=== PATIENT | female | born 2000 | race Caucasian/White ===

== ENCOUNTER → 2023-09-18 09:05 | Outpatient (BNVA) | payer OTHER, SELFPAY | PROVIDERS: Family Provider Registered Nurse; PCP Registered Nurse; Visit Provider Nurse Practitioner Women's Health | DX: Z34.90 Encounter for supervision of normal pregnancy, unspecified, unspecified trimester (principal) | CPT/HCPCS: 76801; 80307; 81025; 85025; 86592; 86762; 86803; 86850; 86900; 87086; 87340; 87806 ==

== ENCOUNTER → 2023-10-13 09:30 | Outpatient (BNVA) | payer OTHER, SELFPAY | PROVIDERS: Family Provider Registered Nurse; PCP Registered Nurse; Visit Provider Obstetrics & Gynecology | DX: Z34.02 Encounter for supervision of normal first pregnancy, second trimester (principal) | CPT/HCPCS: 81000; 87491; 87591; 88175 ==

== ENCOUNTER → 2023-11-20 14:18 | Outpatient (BNVA) | payer OTHER, SELFPAY | PROVIDERS: Family Provider Registered Nurse; PCP Registered Nurse; Visit Provider Obstetrics & Gynecology | DX: Z34.90 Encounter for supervision of normal pregnancy, unspecified, unspecified trimester (principal) | CPT/HCPCS: 76805 ==

== ENCOUNTER → 2023-12-12 10:32 | Outpatient (BNVA) | payer OTHER, SELFPAY | PROVIDERS: Family Provider Registered Nurse; PCP Registered Nurse; Visit Provider Nurse Practitioner Women's Health | DX: Z34.02 Encounter for supervision of normal first pregnancy, second trimester (principal) | CPT/HCPCS: 82950 ==

== ENCOUNTER → 2024-01-02 08:30 | Outpatient (BNVA) | payer OTHER, SELFPAY | PROVIDERS: Family Provider Registered Nurse; PCP Registered Nurse; Visit Provider Obstetrics & Gynecology | DX: Z34.02 Encounter for supervision of normal first pregnancy, second trimester (principal) | CPT/HCPCS: 84315; 85025 ==

== ENCOUNTER → 2024-02-11 08:08 | Outpatient (BNVA) | payer OTHER, SELFPAY | PROVIDERS: Family Provider Registered Nurse; PCP Registered Nurse; Visit Provider Nurse Practitioner Women's Health | DX: Z34.03 Encounter for supervision of normal first pregnancy, third trimester (principal) | CPT/HCPCS: 84315; 85025 ==

== ENCOUNTER → 2024-02-23 08:04 | Outpatient (BNVA) | payer OTHER, SELFPAY | PROVIDERS: Family Provider Registered Nurse; PCP Registered Nurse; Visit Provider Obstetrics & Gynecology | DX: Z34.02 Encounter for supervision of normal first pregnancy, second trimester (principal) | CPT/HCPCS: 84315; 87081 ==

== ENCOUNTER 2024-03-23 17:11 | Inpatient (IN) | payer OTHER, SELFPAY ==
[2024-03-23] VITALS (13 sets, daily range): BP systolic 110–143; BP diastolic 75–99; PULSE 67–98; TEMP 36.1; BMI 32.5
[2024-03-23] MEDS: miSOPROStol 100 mcg tablet 25 MCG VAGINAL (18:19)
[2024-03-23 18:45] LABS: Basophils % 0.5 %; Eosinophils # 0.1 10^3/uL (0.0-0.8); Eosinophils % 0.9 %; Hematocrit 34.9 % (36-47); Lymphocytes # 1.5 10^3/uL (0.8-4.8); Lymphocytes % 23.7 %; Mean Corpuscular HGB Conc 33.8 g/dL (30-55); Mean Corpuscular Hemoglobin 31.3 pg (27-33); Mean Corpuscular Volume 92.6 fl (85-98); Mean Platelet Volume 10.8 fL (7.4-10.4); Monocytes # 0.4 10^3/uL (0.2-0.9); Monocytes % 6.1 %; Neutrophils # 4.34 10^3/uL (1.8-7.7); Neutrophils % 68.3 %; Nucleated Red Blood Cells % 0 %; Platelet Count 164 10^3/cmm (157-399); Red Blood Count 3.77 10^6/uL (3.85-5.65); Red Cell Distribution Width 15.8 % (12.1-15.1); White Blood Count 6.36 10^3/uL (3.29-11.43)
[2024-03-23 18:51] LABS: Urine Color Yellow (Yellow)
[2024-03-23 18:52] LABS: Add Urine Microscopic? YES; Bilirubin Urine Neg (Negative); Blood Urine Neg (Negative); Glucose Urine UA Norm (Normal); Ketones Urine Negative (Negative); Leukocyte Esterase Urine Trace (Negative); Nitrate Urine Negative (Negative); Protein Urine Neg (Negative); Urine Appearance Clear (CLEAR); Urobilinogen Urine Norm (Negative); pH Urine 7 (5-7)
[2024-03-23 18:55] LABS: Add Urine Culture? No; Bacteria Urine TRACE /hpf; Transitional Epi Cells Urine 0-4 /hpf
[2024-03-23 18:58] LABS: Urine Creatinine 42 mg/dL (28-217); Urine Protein Random 4 mg/dL
[2024-03-23 18:59] LABS: Alanine Aminotransferase 8 U/L (0-33); Albumin Level 3.5 g/dL (3.5-5.2); Alkaline Phosphatase 198 U/L (35-105); Aspartate Amino Transferase 19 U/L (0-32); Blood Urea Nitrogen 6 mg/dL (6-20); Calcium 8.7 mg/dL (8.5-10.5); Carbon Dioxide 19 mmol/L (22-29); Chloride 104 mmol/L (98-107); Creatinine Clr Calc Pharmacy 158.8692; Glomerular Filtration Rate 152.9 mL/min (90-130); Glucose 108 mg/dL (65-115); Osmolality Calculated 280 mOsm/kg (285-295); Sodium 136 mmol/L (136-145); Total Bilirubin 0.2 mg/dL (0.15-1.2); Total Protein 6.5 g/dL (6.6-8.7)
[2024-03-23 19:03] LABS: Anion Gap 16.6 (5-19); Potassium 3.6 mmol/L (3.5-5.1)
--- NOTE | 2024-03-23 19:16 | W.PM.OPSUD ---
Surgery/Procedure H&P Update DATE OF PROCEDURE: March 23, 2024 DATE H&P PERFORMED: 03/22/24 H&P UPDATE INFORMATION: I have reviewed H&P completed within last 30 days, I have examined patient prior to procedure and No changes to prior documentation
[2024-03-24] VITALS (88 sets, daily range): BP systolic 104–174; BP diastolic 7–107; PULSE 68–123; RESP 15–18; TEMP 36.3–36.7; O2SAT 97–99
[2024-03-24] MEDS: lactated ringers 1,000 ML 999 ML IV ×2 (00:30→05:00)
[2024-03-24] MEDS: fentaNYL 50 mcg/mL INJ 2mL IVP (04:25)
--- NOTE | 2024-03-24 05:52 | P.ANESASSM_ITS ---
Pre-Anesthetic Assessment Height/Weight: Height 1.52 m Weight 75.523 kg Temp Pulse Resp BP Pulse Ox O2 Del Method 97.0 F L 103 H 18 150/84 97 Room Air 03/23/24 18:25 03/24/24 05:47 03/24/24 04:25 03/24/24 05:46 03/24/24 05:47 03/23/24 18:45 Preop Diagnosis: Labor pain KALYAN Was Beta Ana taken within 24 hours: N/A Was Clonidine taken within 24 hours: N/A Social No alcohol and No tobacco Exam alert, oriented x 3, clear to auscultation bilaterally and regular rate & rhythm Airway Submandibular: within normal limits Cervical ROM: within normal limits Mallampati: Class II Dentition: full History/ROS No significant history except as noted and No significant complaints Pulmonary None reported CV/HEM None reported None reported Hepatic None reported GI None reported Metabolic None reported Musc/skel None reported Neuropsych None reported Anesthetic Plan ASA status: 2 Anesthesia: Anesthesia Evaluation and Regional (specify below) (KALYAN) Risk of > 500 ml blood loss (7ml/kg in children): No Medications/Allergies Home Medications Medication Instructions Recorded Confirmed Last Taken Type PNV 153-FA 400 mcg-om3 35 mg-dha 1 tab PO DAILY 09/18/23 03/22/24 Unknown History 25 mg-epa 5 mg-fish oil chew tablet ( Gummies) ferrous sulfate 325 mg (65 mg 325 mg PO BID #60 tabs 02/11/24 03/22/24 Unknown Rx iron) tablet Allergies Allergy/AdvReac Type Severity Reaction Status Date / Time blueberry Allergy Mild ALGY-Swell Verified 03/22/24 11:13 Lip/Tongue/Throat Current Medications Generic Name Dose Route Start Last Admin Trade Name Freq PRN Reason Stop Dose Admin Fentanyl 25 - 100 mcg 03/23/24 17:57 03/24/24 04:25 Fentanyl 50 Mcg/Ml Inj 2ml IVP 25 mcg Q1H PRN Administration SEVERE PAIN Lactated Ringer's 1,000 mls @ 999 mls/hr 03/23/24 20:36 03/24/24 05:00 Lactated Ringers IV Infused .Q1H1M PRN Infusion Per L&D Rescitation Protocol Lactated Ringer's 1,000 mls @ 999 mls/hr 03/24/24 05:06 03/24/24 05:00 Lactated Ringers IV 999 mls/hr .Q1H1M PRN Administration See label comments PFSH Anesthesia Medical History No pertinent past medical history neghx: htn,dm,thryoid,dvt/pe PCP: Keerthi Rincon Surgical History No pertinent past surgical history Family History Grandfather Colon cancer Father Hypertension Denies family history of Ovarian cancer Prostate cancer Diabetes Heart disease Hyperlipidemia Breast cancer Uterine cancer Thyroid disease Stroke Social History Smoking and tobacco/nicotine status: never used tobacco/nicotine Female Reproductive History : 1 Data Anesthesia 03/23/24 18:10 03/23/24 18:10 Short CBC 03/23/24 Range/Units 18:10 WBC 6.36 (3.29-11.43) 10^3/uL Hgb 11.80 (11.27-16.99) g/dL Hct 34.9 L (36-47) % MCV 92.6 (85-98) fl Plt Count 164 (157-399) 10^3/cmm Neut % (Auto) 68.3 % Neut # (Auto) 4.34 (1.8-7.7) 10^3/uL BMP 03/23/24 18:10 Sodium 136 Potassium 3.6 Chloride 104 Carbon Dioxide 19 L BUN 6 Creatinine 0.5 Glucose 108 Calcium 8.7 Liver Function 03/23/24 Range/Units 18:10 Total Bilirubin 0.2 (0.15-1.2) mg/dL AST 19 (0-32) U/L ALT 8 (0-33) U/L Alkaline Phosphatase 198 H (35-105) U/L Albumin 3.5 (3.5-5.2) g/dL Urine 03/23/24 Range/Units 18:10 Urine Color Yellow (Yellow) Urine Appearance Clear (CLEAR) Urine pH 7 (5-7) Ur Specific [place] 1.000 L (1.005-1.030) Urine Protein Neg (Negative) Urine Glucose (UA) Norm (Normal) Urine Ketones Negative (Negative) Urine Nitrate Negative (Negative) Urine Bilirubin Neg (Negative) Ur Leukocyte Esterase Trace H (Negative) Urine RBC None (0-2) /hpf Urine WBC 5-10 H (0-5) /hpf Blood Bank 03/23/24 18:10 Blood Type O Positive Rho(D) Type Rh positive Antibody Screen Negative Cardiac Studies: 2 No Data to Display
--- NOTE | 2024-03-24 05:54 | ANES.PROC ---
Anesthesia Procedures Procedure/Date: 03/24/24 Epidural: Time Out Performed: Yes Consents Signed: Procedure Consent Consent: requested by attending/covering physician, from patient, risks and benefits reviewed and patient agrees to proceed Lumbar Level: L2-L3 Epidural position: sitting Epidural procedure: sterile prep of area, 1% lidocaine to numb the area, 18 g needle, neg for paresthesia, test dose given (4cc), 1.5% xylocaine 1:200k epi, 0.2% Ropivacaine bolus ml (4cc and Fentanyl 100mcg), placed PCEA, no systemic response, sterile dressing applied and 0.2% Ropiavacaine @ mls/hr (10cc/hour)
[2024-03-24] MEDS: ROPivacaine syringe 100 MG/50 ML SYRINGE 10 MG EPIDURAL ×2 (06:00→10:33)
[2024-03-24] MEDS: dextrose 5%-lactated ringers 1,000 ML 125 ML IV (09:57)
[2024-03-24] MEDS: oxytocin 30 UNIT/500 ML BAG 600 UNIT IV (11:30)
--- NOTE | 2024-03-24 12:00 | PM.DELIVERY ---
Delivery Note: Date of delivery: March 24, 2024 Pre-delivery diagnoses: Term Post-delivery diagnoses: Term delivered Procedure: A spontaneous vaginal delivery Estimated blood loss (mL): 300 Pre-Delivery Course: The patient is a 23yo at 40+1 weeks EGA LMP of 06/15/2023, CHANDA 03/21/2024 consistent with 13 week dating ultrasound who has been receiving care from [facility]. CC: Elective induction. HPI: Received appropriate care. Daily vitamins since start of care. labs have all been normal, including negative for HIV. She was found to negative for Group B Strep from screening at 36 weeks. She has gained approximately 35.4 lbs throughout the . She denies a history of HTN during . Glucose tolerance screening for gestational diabetes was negative. Delivery: The patient was noted to be complete and pushing, so was placed in the dorsal lithotomy position, prepped and draped in the usual sterile fashion for a vaginal delivery. Pt. Noted to have epidural anesthesia. At 1129 the patient delivered a viable 40+2 female weighing 30-10 g with scores of 8 and 9 at one and five minutes, respectively. The vertex was delivered spontaneously over intact perineum. The patient was asked to push and the head delivered spontaneously in the ROE position, over an intact perineum. A nuchal cord was checked and none noted. The anterior shoulder delivered easily and the posterior shoulder followed. The remainder of the infant was easily delivered and the oropharynx and nasopharynx was bulb suctioned. The was noted to have spontaneous cry and spontaneous movement of all four extremities. The cord was clamped x 2 and cut and noted to have 2 arteries and one vein. The was passed to the mother's abdomen where nursing personnel were in attendance. Cord blood sample was then obtained. The placenta delivered intact spontaneously and the uterus was explored. 20 units of Pitocin was placed in the IV bag to firm the uterus. Examination of the cervix and vaginal vault did not reveal any lacerations. A vaginal pack was then placed. Examination of the perineum showed small second-degree laceration. The laceration was repaired with 3-0 Vicryl in the normal fashion in a running non locking fashion to reapproximate the laceration in layers. The vaginal pack was then removed. The patient tolerated this procedure well, and recovered in L&D with her infant in their LDR room. All sponge and needle counts were correct. Post-Delivery Status: Good and stable History History History 1 Term 0 Miscarriages/Ectopic Living Children A&P Assessment and plan (1) Term delivered: Coding Level of Care Code Acute Code for Chg Fwd Diagnoses Term delivered O80
[2024-03-24] MEDS: ibuprofen 800 mg tablet PO ×2 (14:36→20:07)
[2024-03-24] MEDS: lanolin oint 7 gm 1 APPLIC TOPICAL (14:38)
[2024-03-24] MEDS: benzocaine-menthol 78 gm Canister 1 SPRAY TOPICAL (14:38)
--- NOTE | 2024-03-24 15:49 | PC.NURSE ---
Pt up to bathroom. large void in toilet. Yuridia care performed. Dermaplast used. Pad, underwear, and gown changed. Pt then ambulated to OB7 for post stay. Oriented to room/call light. Proud parent pack and feeding log discussed. Visiting hours discussed.
--- NOTE | 2024-03-24 16:24 | P.ANESPOST_ITS ---
Inpatient post-anesthesia follow up: Airway intact: Yes Vital signs: Temperature 97.9 F Pulse Rate 104 Respiratory Rate 17 Blood Pressure 134/82 Pulse Oximetry 98 Oxygen Delivery Me thod Room Air Oxygen Flow Rate Fraction of Inspir ed Oxygen Hydration adequate: Yes Pain level: 1 Mental status: Baseline Epidural Start/End: Epidural Start Date: 03/24/24 Epidural Start Time: 05: 28 Epidural End Date: 03/24/24 Epidural End Time: 13:41
[2024-03-24] MEDS: docusate sodium 100 mg Capsule PO (17:41)
[2024-03-24] MEDS: HYDROcodone-acetaminophen 5-325 mg Tablet PO (17:42)
[2024-03-24] MEDS: labetalol 5 mg/mL SDV 20mL 20 MG IVP (19:18)
[2024-03-24 19:47] LABS: Basophils % 0.2 %; Eosinophils % 0.2 %; Hematocrit 36.1 % (36-47); Lymphocytes # 1.2 10^3/uL (0.8-4.8); Mean Corpuscular HGB Conc 33.2 g/dL (30-55); Mean Corpuscular Hemoglobin 31.1 pg (27-33); Mean Corpuscular Volume 93.5 fl (85-98); Mean Platelet Volume 10.5 fL (7.4-10.4); Monocytes # 0.8 10^3/uL (0.2-0.9); Monocytes % 5.7 %; Neutrophils # 11.33 10^3/uL (1.8-7.7); Neutrophils % 84.5 %; Nucleated Red Blood Cells % 0 %; Platelet Count 158 10^3/cmm (157-399); Red Blood Count 3.86 10^6/uL (3.85-5.65); Red Cell Distribution Width 15.8 % (12.1-15.1); White Blood Count 13.41 10^3/uL (3.29-11.43)
[2024-03-24 19:54] LABS: Alanine Aminotransferase 8 U/L (0-33); Anion Gap 13.8 (5-19); Aspartate Amino Transferase 24 U/L (0-32); Calcium 8.9 mg/dL (8.5-10.5); Chloride 105 mmol/L (98-107); Globulin 2.6 g/dL (1.3-4.6); Glucose 86 mg/dL (65-115); Potassium 3.8 mmol/L (3.5-5.1); Total Bilirubin 0.6 mg/dL (0.15-1.2); Uric Acid 5.6 mg/dL (2.4-5.7)
--- NOTE | 2024-03-24 20:01 | PC.NURSE ---
190: straight cath UA specimen obtained
[2024-03-24 20:02] LABS: Urine Creatinine 62 mg/dL (28-217); Urine Protein Random 17 mg/dL
[2024-03-24 20:06] LABS: UPRO/UCREAT Ratio 0.27 mg/mg CR
[2024-03-24 20:28] LABS: Alkaline Phosphatase 183 U/L (35-105); Carbon Dioxide 20 mmol/L (22-29); Osmolality Calculated 277 mOsm/kg (285-295); Sodium 135 mmol/L (136-145); Total Protein 5.6 g/dL (6.6-8.7)
[2024-03-24 20:30] LABS: Blood Urea Nitrogen 7 mg/dL (6-20); Creatinine Clr Calc Pharmacy 158.8692; Glomerular Filtration Rate 152.9 mL/min (90-130)
[2024-03-25] VITALS (10 sets, daily range): BP systolic 124–150; BP diastolic 79–104; PULSE 80–101; RESP 16–18; TEMP 36.4–36.8; O2SAT 98
[2024-03-25] MEDS: PRENATAL VIT NO.130/IRON/FOLIC 1 EACH TABLET PO (09:01)
[2024-03-25] MEDS: docusate sodium 100 mg Capsule PO (09:01)
[2024-03-25] MEDS: ibuprofen 800 mg tablet PO ×2 (09:01→15:24)
[2024-03-25] MEDS: NIFEdipine 10 mg Capsule 30 MG PO (13:33)
--- NOTE | 2024-03-25 17:13 | PM.OBGYDC ---
Discharge Providers POST TENSIONING IRONWORKER Date of Admission: 03/23/24 17:11 Date of Discharge: 03/25/24 Attending Provider at Admission: Seymour Summers MD Attending Provider at Discharge: Seymour Summers MD Primary Care Provider: Keerthi Rincon NP Diagnoses at Discharge Discharge Diagnosis (1) Term delivered: Status: Acute Reason for Visit Reason for Visit: IOL Hospital Course Hospital Course he patient is a 23yo at 40+1 weeks EGA LMP of 06/15/2023, CHANDA 03/21/2024 consistent with 13 week dating ultrasound who has been receiving care from [facility]. CC: Elective induction. HPI: Received appropriate care. Daily vitamins since start of care. labs have all been normal, including negative for HIV. She was found to negative for Group B Strep from screening at 36 weeks. She has gained approximately 35.4 lbs throughout the . She denies a history of HTN during . Glucose tolerance screening for gestational diabetes was negative. Misoprostol was given vaginally for cervical ripening x 1. she progressed to have a spontaneous vaginal delivery without complications. She is afebrile hemodynamically stable day 1. Tolerating diet well. Ambulating without difficulty. She had experienced a brief moment of hypertension but preeclampsia workup was within normal limits. The patient advised to monitor blood pressure at home and counseled regarding pelvic rest for 6 weeks (no sex, no tampons, no vaginal douches). Return to the emergency room if any fever, increased bleeding or pain.. Information Peripartum Data: Delivery Method: Vaginal Physical Exam Narrative: GA: Alert and oriented ?3. HEENT: WNL. Heart: Regular rate and rhythm. Lungs: Clear to auscultation bilaterally. Abdomen: Bowel sounds present, nontender[, minimal tenderness, incision clean and dry, no redness, pain or edema]. FUNERAL [employer] CHAUFFEUR: spotting bleeding. Extremities: No edema, no cyanosis, no calves pain. Urinary Catheter Management: Vargas Latex: Cath Placed During This Visit: yes, but has since been removed by the nurse Reason for Continuing Indwelling Catheter: Decision to DC Catheter Urinary Catheter Date of Insertion: 03/24/24 Urinary Catheter Time of Insertion: 06:30 Date Urinary Catheter Removed: 03/24/24 Time Urinary Catheter Discontinued: 11:12 History History History 1 Term 0 Miscarriages/Ectopic Living Children Discharge Data Studies Completed and Pending Pending at discharge Category Date Time Status Hemagram Timed Lab 03/25/24 00:06 Uncollected Laboratory Results WBC 13.41 10^3/uL (3.29-11.43) H 03/24/24 19:11 RBC 3.86 10^6/uL (3.85-5.65) 03/24/24 19:11 Hgb 12.00 g/dL (11.27-16.99) 03/24/24 19:11 Hct 36.1 % (36-47) 03/24/24 19:11 MCV 93.5 fl (85-98) 03/24/24 19:11 MCH 31.1 pg (27-33) 03/24/24 19:11 MCHC 33.2 g/dL (30-55) 03/24/24 19:11 RDW 15.8 % (12.1-15.1) H 03/24/24 19:11 Plt Count 158 10^3/cmm (157-399) 03/24/24 19:11 MPV 10.5 fL (7.4-10.4) H 03/24/24 19:11 Neut % (Auto) 84.5 % 03/24/24 19:11 Lymph % (Auto) 9.0 % 03/24/24 19:11 [place] % (Auto) 5.7 % 03/24/24 19:11 Eos % (Auto) 0.2 % 03/24/24 19:11 Baso % (Auto) 0.2 % 03/24/24 19:11 Neut # (Auto) 11.33 10^3/uL (1.8-7.7) H 03/24/24 19:11 Lymph # (Auto) 1.2 10^3/uL (0.8-4.8) 03/24/24 19:11 [place] # (Auto) 0.8 10^3/uL (0.2-0.9) 03/24/24 19:11 Eos # (Auto) 0.0 10^3/uL (0.0-0.8) 03/24/24 19:11 Baso # (Auto) 0.0 10^3/uL (0.0-0.1) 03/24/24 19:11 Nucleated RBC % (auto) 0 % 03/24/24 19:11 Nucleated RBCs # 0.0 /100WBC 03/24/24 19:11 Sodium 135 mmol/L (136-145) L 03/24/24 19:11 Potassium 3.8 mmol/L (3.5-5.1) 03/24/24 19:11 Chloride 105 mmol/L (98-107) 03/24/24 19:11 Carbon Dioxide 20 mmol/L (22-29) L 03/24/24 19:11 Anion Gap 13.8 (5-19) 03/24/24 19:11 BUN 7 mg/dL (6-20) 03/24/24 19:11 Creatinine 0.5 mg/dL (0.5-0.9) 03/24/24 19:11 GFR Calculation 152.9 mL/min (90-130) H 03/24/24 19:11 Glucose 86 mg/dL (65-115) 03/24/24 19:11 Calculated Osmolality 277 mOsm/kg (285-295) L 03/24/24 19:11 Uric Acid 5.6 mg/dL (2.4-5.7) 03/24/24 19:11 Calcium 8.9 mg/dL (8.5-10.5) 03/24/24 19:11 Total Bilirubin 0.6 mg/dL (0.15-1.2) 03/24/24 19:11 AST 24 U/L (0-32) 03/24/24 19:11 ALT 8 U/L (0-33) 03/24/24 19:11 Alkaline Phosphatase 183 U/L (35-105) H 03/24/24 19:11 Total Protein 5.6 g/dL (6.6-8.7) L 03/24/24 19:11 Albumin 3.0 g/dL (3.5-5.2) L 03/24/24 19:11 Globulin 2.6 g/dL (1.3-4.6) 03/24/24 19:11 Urine Color Yellow (Yellow) 03/23/24 18:10 Urine Appearance Clear (CLEAR) 03/23/24 18:10 Urine pH 7 (5-7) 03/23/24 18:10 Ur Specific [place] 1.000 (1.005-1.030) L 03/23/24 18:10 Urine Protein Neg (Negative) 03/23/24 18:10 Urine Glucose (UA) Norm (Normal) 03/23/24 18:10 Urine Ketones Negative (Negative) 03/23/24 18:10 Urine Blood Neg (Negative) 03/23/24 18:10 Urine Nitrate Negative (Negative) 03/23/24 18:10 Urine Bilirubin Neg (Negative) 03/23/24 18:10 Urine Urobilinogen Norm mg/dL (Negative) 03/23/24 18:10 Ur Leukocyte Esterase Trace (Negative) H 03/23/24 18:10 Urine RBC None /hpf (0-2) 03/23/24 18:10 Urine WBC 5-10 /hpf (0-5) H 03/23/24 18:10 Ur Squamous Epith Cells 10-15 /hpf (0-5) H 03/23/24 18:10 Ur Transition Epith Cell 0-4 /hpf 03/23/24 18:10 Amorphous Sediment Not Reportable 03/23/24 18:10 Urine Bacteria Trace /hpf (NONE) 03/23/24 18:10 Urine Mucus None /hpf 03/23/24 18:10 U Random Total Protein 17 mg/dL 03/24/24 19:04 Urine Creatinine 62 mg/dL (28-217) 03/24/24 19:04 Protein/Creatinin Ratio 0.27 mg/mg CR 03/24/24 19:04 Blood Type O Positive 03/23/24 18:10 Rho(D) Type Rh positive 03/23/24 18:10 Antibody Screen Negative 03/23/24 18:10 Vitals Last Vital Signs Temp 98.1 F 03/25/24 16:30 Pulse 101 H 03/25/24 16:30 Resp 18 03/25/24 16:30 BP 135/85 03/25/24 16:30 Pulse Ox 98 03/25/24 15:14 O2 Del Method Room Air 03/25/24 16:30 Results Labs OB ([facility]): Blood Type O Positive 03/23/24 Antibody Screen Negative 03/23/24 Hct 36.1 % (36-47) 03/24/24 Hgb 12.00 g/dL (11.27-16.99) 03/24/24 Rho(D) Type Rh positive 03/23/24 Plt Count 158 10^3/cmm (157-399) 03/24/24 Hep Bs Antigen Non-reactive (Nonreactive) 09/18/23 Hepatitis C Antibody Non-reactive (Nonreactive) 09/18/23 Rubella IgG Antibody 161.3 IU/mL (0.0-10.0) H 09/18/23 RPR Nonreactive (Nonreactive) 09/18/23 HIV 1&2 Ab & HIV 1 Ag Non-reactive (Non-Reactiv) 09/18/23 C.trachomatis RNA (TMA) Not detected (NOT DETECTED) 10/13/23 N.gonorrhoeae RNA (TMA) Not detected (NOT DETECTED) 10/13/23 T. vaginalis Amp RNA Not detected (NOT DETECTED) 10/13/23 Chlamydia/GC Comment See note 10/13/23 Cystic Fibrosis Screen Negative 09/30/23 Glucose 1 Hr 50 gm 117 mg/dL (85-140) 12/12/23 Uric Acid 5.6 mg/dL (2.4-5.7) 03/24/24 HCG, Qual Positive (Negative) H 09/18/23 Urine Opiates Screen Negative ng/mL (Negative) 09/18/23 Ur Barbiturates Screen Negative ng/mL (Negative) 09/18/23 Ur Phencyclidine Scrn Negative ng/mL (Negative) 09/18/23 Ur Amphetamines Screen Negative ng/mL (Negative) 09/18/23 U Benzodiazepines Scrn Negative ng/mL (Negative) 09/18/23 Urine Cocaine Screen Negative ng/mL (Negative) 09/18/23 U Marijuana (THC) Screen Negative ng/mL (Negative) 09/18/23 Micro Urine Specimen 09/18/23 Pap Smear Interpret See note 10/13/23 Discharge Plan Discharge Patient Disposition: Home Condition: Stable Prescriptions: New ibuprofen 800 mg tablet 800 mg PO TID PRN (Reason: pain) Qty: 60 0RF acetaminophen 325 mg capsule 325 mg PO Q4H PRN (Reason: fever or pain) Qty: 60 0RF Continued Gummies 400 mcg-35 mg- 25 mg-5 mg tablet,chewable 1 tab PO DAILY ferrous sulfate 325 mg (65 mg iron) tablet 325 mg PO BID Qty: 60 3RF Discharge Orders: Discharge Order (Routine); Ordered 03/25/24 Ordered By: Seymour Summers Referrals: Seymour Summers MD [Physician] - 2 weeks (Monitor blood pressure) Discharge Diet: Usual diet Discharge Activity: Limit activity as instructed Patient Instructions: Depression (DC), Bleeding (DC), Preeclampsia and Eclampsia After Delivery (GEN), Hemorrhage (DC), OB Discharge Report, OB Anesthesia Instructions, Opioid Safety, OB Home Care, OB Proud Parent Packet, OB Vaginal Deliveries - [facility] Activity Restrictions/Additional Instructions: 1. Please call [facility] on next working day to make your appointment in 6 weeks and in 2 weeks to monitor blood pressure. 2. Please stay home until you come back to the clinic on first post-hospatilization check up. 3. Please follow instructions on your medications CAREFULLY. 4. If you have abdominal incision, do not cover it unless dressing is necessary because of drainage. OK to shower, but avoid bath. Leave steri-strips until they fall off. If they are still on one week after surgery, you may remove them. 5. If you had vaginal surgery or vaginal repair, Dr. Summers may instruct you to take SITZ bath. 6. Yellow, blood tinged odorous vaginal discharge is usually normal after hysterectomy or vaginal surgeries. 7. No SEXUAL INTERCOURSE, tampons, or douches until you are completely released from the post-operative care. 8. Avoid constipation by eating right and maybe using some Metamucil or Milk of Magnesia. 9. All prescription refills are given during the working hours. Please do no wait till it runs out. Call the clinic at [phone] before your medication runs out. The clinic will get in touch with your doctor to prescribe medications if necessary. 10. Please remain within 40 mile radius from our hospital because emergencies do happen now and then during the post-operative period. 11. If you have stairs at home, take one step at a time slowly and minimize the number of trips. It helps to stay in one floor for the next few days. No lifting except what you can lift by one hand until you are released from the post-operative care. 12. Driving is discouraged until you are well healed. It may be 3-4 weeks before you feel strong enough to drive. You should be able to turn and look through the rear window without pain and you should be able to push the brake pedal very hard without pain before you drive. No fast rules, but SAFETY should be your primary concern. DO NOT drive if you are on sedating medications such as narcotics. 13. Call the clinic (during working hours) to make urgent appointment or go to the Emergency room, if any of the following occurs: i. Vaginal bleeding becomes heavy, more than a period. ii. Incision becomes red and sore, or drains pus. iii. Your TEMPERATURE is over 100.4F or you have chill. iv. IV site becomes red and swollen (a little ``knot?? is usually OK) v. Persistent nausea and vomiting vi. Persistent constipation or diarrhea vii. Rash or allergic reaction to medications. Discharge Attestations POST TENSIONING IRONWORKER Time Spent in Discharge Care*: greater than 30 min Coding Level of Care Code Acute Code for Chg Fwd Diagnoses Term delivered O80
== END 2024-03-25 18:10 | disposition home or self-care (01) | DRG 807 ==
LOC: OPOB 17:11 → OBGYN 17:11
PROVIDERS: Admitting Provider Obstetrics & Gynecology; Family Provider Registered Nurse; PCP Nurse Practitioner Family; Visit Provider Obstetrics & Gynecology
DX: O48.0 Post-term pregnancy (principal); Z37.0 Single live birth; Z3A.40 40 weeks gestation of pregnancy; O99.02 Anemia complicating childbirth; D64.9 Anemia, unspecified; O70.1 Second degree perineal laceration during delivery; O99.893 Other specified diseases and conditions complicating puerperium; R03.0 Elevated blood-pressure reading, without diagnosis of hypertension
CPT/HCPCS: 36415; 51702; 59025; 59409; 80053; 81001; 82570; 84156; 84550; 85025; 86850; 86900; 96374; 96376; 99211; J2590; J2795; J3010; J3490; J7120; J7121

== ENCOUNTER → 2024-08-09 16:32 | Outpatient (BNVA) | payer OTHER, SELFPAY | PROVIDERS: Family Provider Registered Nurse; PCP Nurse Practitioner Family; Visit Provider Obstetrics & Gynecology | DX: N91.4 Secondary oligomenorrhea (principal) | CPT/HCPCS: 83001; 84146; 84443 ==